=== PATIENT | male | born 2000 | race Caucasian/White ===

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

== ENCOUNTER 2022-11-28 11:56 | Emergency (ER) | payer OTHER, MEDICAID, SELFPAY ==
[2022-11-28 12:12] VITALS: BP 142/74; PULSE 64; RESP 20; TEMP 37.1; O2SAT 100; BMI 18.4
--- NOTE | 2022-11-28 13:12 | ED_ITS ---
HPI - URI/Sore Throat <KATE Tovar - Last Filed: 11/28/22 16:58> General Chief Complaint: Dental/Oral Stated Complaint: has thrush needs more meds Time Seen by Provider: 11/28/22 13:04 Source: patient Mode of arrival: Ambulatory History of Present Illness HPI Narrative: This is a 22-year-old male presents to the emergency department with a sore throat and mouth which he states has not gotten any better since starting nystatin 1 week ago. He states he came from [place], has never had this infection before, denies history of medical problems. Denies history of diabetes, HIV or other. States that his mouth and his throat feel dry all the time. He has history of T&A surgery but states that he feels like his mouth and throat are raw. There is a faint white film on his tongue and posterior pharyn x. He denies fever chills but states that he had viral symptoms preceding this and was tested for COVID which was negative. He states that he had a negative strep test as well. States the nystatin has not made any difference and he has not had any improvement thus far. Related Data Home Medications Medication Instructions Recorded Confirmed acetaminophen 500 mg tablet 1,000 mg PO Q6H PRN Fever Or Pain 08/01/18 11/23/19 (Tylenol Extra Strength) Previous Rx's Medication Instructions Recorded dicloxacillin 500 mg capsule 500 mg PO Q6H Infection #40 caps 11/23/19 fluoxetine 20 mg capsule See Rx Instructions .Route 06/12/20 .COMPLEX #30 caps fluconazole 150 mg tablet 150 mg PO Q3D 2 doses #2 tabs 11/28/22 Allergies Allergy/AdvReac Type Severity Reaction Status Date / Time No Known Drug Allergies Allergy Verified 11/28/22 12:18 Review of Systems <KATE Tovar - Last Filed: 11/28/22 16:58> Review of Systems ROS Unobtainable: All systems reviewed & are unremarkable except as noted in HPI and below Patient History <KATE Tovar - Last Filed: 11/28/22 16:58> Medical History (Updated 11/28/22 @ 13:49 by KATE Tovar) Anxiety and depression Asymmetry of face Delayed immunizations Marijuana smoker No chronic problems No pertinent family history Syncope Surgical History History of foot surgery Status post tonsillectomy and adenoidectomy Social History Smoking Status: Current some day smoker Smoking Status: Current some day smoker tobacco type: vaping alcohol intake frequency: 0-2 drinks per day Substance Use Type: marijuana Exam <KATE Tovar - Last Filed: 11/28/22 16:58> Narrative Exam Narrative: HEENT: Face is symmetrical, patient is afebrile, tongue with my white film, posterior pharynx without tonsils or adenoids, mild erythema, posterior pharynx with mild exudate, airway is widely patent Initial Vital Signs Initial Vital Signs: Vital Signs Temperature 98.8 F 11/28/22 12:12 Pulse Rate 64 11/28/22 12:12 Respiratory Rate 20 11/28/22 12:12 Blood Pressure 142/74 H 11/28/22 12:12 Pulse Oximetry 100 11/28/22 12:12 Oxygen Delivery Method Room Air 11/28/22 12:12 <Cleo Gomez DO - Last Filed: 12/03/22 08:42> Initial Vital Signs Initial Vital Signs: Vital Signs Temperature 98.8 F 11/28/22 12:12 Pulse Rate 64 11/28/22 12:12 Respiratory Rate 20 11/28/22 12:12 Blood Pressure 142/74 H 11/28/22 12:12 Pulse Oximetry 100 11/28/22 12:12 Oxygen Delivery Method Room Air 11/28/22 12:12 Course <KATE Tovar - Last Filed: 11/28/22 16:58> Orders Ordered: Discontinued Medications Ceftriaxone Sodium (Ceftriaxone 1,000 Mg Vial) 500 mg IM NOW ONE Stop: 11/28/22 13:12 Last Admin: 11/28/22 13:45 Dose: 500 mg Documented By: FELIPE Fluconazole (Fluconazole 100 Mg Tablet) 150 mg PO NOW ONE Stop: 11/28/22 13:11 Last Admin: 11/28/22 13:34 Dose: 150 mg Documented By: FELIPE Lidocaine HCl (Lidocaine 1% (Pf) 5 Ml) 2.1 ml INJ NOW ONE Stop: 11/28/22 13:12 Last Admin: 11/28/22 13:49 Dose: Not Given Documented By: FELIPE Vital Signs Vital signs: Vital Signs - 8 hr 11/28/22 12:12 11/28/22 14:07 Temperature 98.8 F 98.8 F Pulse Rate 64 65 Respiratory Rate 20 18 Blood Pressure 142/74 H 118/77 Pulse Oximetry 100 98 Oxygen Delivery Method Room Air Room Air <Cleo Gomez DO - Last Filed: 12/03/22 08:42> Orders Ordered: Discontinued Medications Ceftriaxone Sodium (Ceftriaxone 1,000 Mg Vial) 500 mg IM NOW ONE Stop: 11/28/22 13:12 Last Admin: 11/28/22 13:45 Dose: 500 mg Documented By: FELIPE Fluconazole (Fluconazole 100 Mg Tablet) 150 mg PO NOW ONE Stop: 11/28/22 13:11 Last Admin: 11/28/22 13:34 Dose: 150 mg Documented By: FELIPE Lidocaine HCl (Lidocaine 1% (Pf) 5 Ml) 2.1 ml INJ NOW ONE Stop: 11/28/22 13:12 Last Admin: 11/28/22 13:49 Dose: Not Given Documented By: FELIPE Vital Signs Vital signs: Vital Signs - 8 hr 11/28/22 12:12 11/28/22 14:07 Temperature 98.8 F 98.8 F Pulse Rate 64 65 Respiratory Rate 20 18 Blood Pressure 142/74 H 118/77 Pulse Oximetry 100 98 Oxygen Delivery Method Room Air Room Air MDM - URI/Sore Throat <KATE Tovar - Last Filed: 11/28/22 16:58> Lab Data Labs: Lab Results 11/28/22 Range/Units 13:38 C.trachomatis RNA (TMA) Negative (Negative) N.gonorrhoeae RNA (TMA) Negative (Negative) MDM Narrative Medical decision making narrative: Chief Complaint: Throat and mouth infection Multiple etiologies for patient's complaint considered including, but not limited to: Streptococcal infection, gonorrhea, HIV, chlamydia, viral pharyngitis, thrush, other bacterial pharyngitis I have independently reviewed the patient's vital signs and nursing notes as w ell as prior records if available. Plan: Throat culture swab including gonorrhea and chlamydia, fluconazole. Patient wishes for empiric treatment until culture results. Will treat with ceftriaxone IM and fluconazole times 3. Throat culture is pending, gonorrhea and chlamydia with antigen is testing as well as looking for Luana. Microbiology has 2 plates pending. Will follow this result today and call the patient back if there is an updated result today. Social considerations that may affect disposition: none Questions are addressed and there is agreement with the plan and for follow-up. I consulted with the ED attending physician Dr. Gomez as needed for higher level of care considerations and they were available for discussion and recommendations regarding plan of care and diagnostic testing. Patient is appropriate for outpatient management. <Cleo Gomez, DO - Last Filed: 12/03/22 08:42> Lab Data Labs: Lab Results 11/28/22 Range/Units 13:38 C.trachomatis RNA (TMA) Negative (Negative) N.gonorrhoeae RNA (TMA) Negative (Negative) Discharge Plan Departure Patient Disposition: Home Clinical Impression: Pharyngitis Qualifiers: Pharyngitis/tonsillitis etiology: unspecified etiology Qualified Code(s): J02.9 - Acute pharyngitis, unspecified Instructions: DI for Pharyngitis/Tonsillopharyngitis -- Adult Activity Restrictions/Additional Instructions: *You have been diagnosed with pharyngitis which could be thrush but I do not think it is as you have not had any improvement in you have been using the nystatin. This very well could be a strep infection or other bacterial infection of your throat. We obtained a culture which will determine what type of bacteria or virus it is if it is 1 of the papular ones and we treated you empirically today for both strep throat and fungal infection. I will call you later today if you need an additional prescriptions sent to your pharmacy, otherwise okay to take fluconazole for thrush again tomorrow and then in 2 days after that if you still have this infection. I may call you later today telling you to not take this because you probably do not need it. *What to do: *Please continue to take your regular medications as directed. [ x] New medication prescriptions sent to your pharmacy: [[facility] ] [ ] New medication written as a paper prescription [ ] No prescription. Please schedule follow up with your primary care provider in 2-3 days, at least for an update. Let them know you were seen in the Emergency Department for the above problem. We will electronically transmit a record of today's note if your PCP or specialist is in our system. *If you do not have a primary care provider please contact [phone] to establish care with one of the [facility] primary care providers. *Return to the Emergency Department for worsening symptoms, inability to keep liquids down, fever greater than 101F, chills, or other concerning symptom. Prescriptions: New fluconazole 150 mg tablet 150 mg PO Q3D Qty: 2 0RF Rx Instructions: may repeat second dose 72 hrs after first dose if symptoms persist No Action dicloxacillin 500 mg capsule 500 mg PO Q6H Qty: 40 0RF Rx Instructions: Take 1 capsule 1 hour before or 2 hours after meals each 6 hours for 10 days fluoxetine 20 mg capsule See Rx Instructions .ROUTE .COMPLEX Qty: 30 0RF Dose Instruction: TAKE ONE CAPSULE BY MOUTH ONE TIME DAILY. please schedule a follow up for additional refills Rx Instructions: TAKE ONE CAPSULE BY MOUTH ONE TIME DAILY. please schedule a follow up for additional refills acetaminophen [Tylenol Extra Strength] 500 mg Tablet 1,000 mg PO Q6H PRN (Reason: Fever Or Pain) Referrals: Deanna Hernandez ARNP [Primary Care Provider] - Stand Alone Forms: Patient Portal/API <Cleo Gomez DO - Last Filed: 12/03/22 08:42> Cosign ED Attending Andressaature Attestation: I was immediately available in the department for consultation. Documentation has been reviewed. Case was discussed, cultures negative for N.gonorrhea or chlamydia. Mixed asaf on culture.
[2022-11-28] MEDS: FLUCONAZOLE 100 MG TABLET 150 MG PO (13:34)
[2022-11-28] MEDS: cefTRIAXone 1,000 MG VIAL 500 MG IM (13:45)
[2022-11-28 14:07] VITALS: BP 118/77; PULSE 65; RESP 18; TEMP 37.1; O2SAT 98
[2022-11-30 04:12] LABS: C.trachomatis RNA Negative (Negative); N.gonorrhoeae RNA Negative (Negative)
== END 2022-11-28 14:07 | disposition home or self-care (01) ==
PROVIDERS: Emergency Provider Nurse Practitioner Critical Care Medicine; Family Provider Pediatrics; PCP Registered Nurse
DX: J02.9 Acute pharyngitis, unspecified (principal)
CPT/HCPCS: 87070; 87081; 87491; 87591; 96372; 99283; J0696

== ENCOUNTER 2023-06-19 16:23 | Emergency (ER) | payer OTHER, MEDICAID, SELFPAY ==
[2023-06-19 16:37] VITALS: BP 129/71; PULSE 76; RESP 16; TEMP 37.4; O2SAT 96; BMI 19.1
--- NOTE | 2023-06-19 16:54 | DI.RAD.S_ITS ---
PROCEDURE: XR FINGER LT MIN 2V INDICATIONS: screw into thumb TECHNIQUE: AP hand, 2 views of the 3 finger(s) acquired. COMPARISON: None. FINDINGS: Bones: No fractures or dislocations. No suspicious bony lesions. Soft tissues: No suspicious soft tissue calcifications. IMPRESSION: No acute bony abnormality. Approved by: Garrett Nogueira M.D. on 06/19/2023 at 17:28
--- NOTE | 2023-06-19 17:28 | ED_ITS ---
<Statement entered by Mj Corbett MD - 06/19/23 18:48> I was immediately available in the department for consultation. Documentation has been reviewed. I agree with assessment and plan. HPI - Wound/Laceration General Chief Complaint: Wound/Laceration Stated Complaint: screw in lt thumb, now removed Time Seen by Provider: 06/19/23 16:56 Source: patient Mode of arrival: Ambulatory History of Present Illness HPI narrative: 22-year-old male with no reported past medical history presents to the ED status post a left finger injury sustained at work. Patient was trying to drill a nail into a board when he accidentally drilled the nail into his left thumb. He was able to unscrew the nail successfully. Patient's last tetanus was in 2019. Patient endorses some mild numbness to the end of his thumb, however denies tingling, weakness. There is full range of motion. Bleeding is controlled with pressure. There is a small puncture wound. Related Data Home Medications Medication Instructions Recorded Confirmed acetaminophen 500 mg tablet 1,000 mg PO Q6H PRN Fever Or Pain 08/01/18 12/19/22 (Tylenol Extra Strength) Previous Rx's Medication Instructions Recorded dicloxacillin 500 mg capsule 500 mg PO Q6H Infection #40 caps 11/23/19 fluoxetine 20 mg capsule See Rx Instructions .Route 06/12/20 .COMPLEX #30 caps fluconazole 150 mg tablet 150 mg PO Q3D 2 doses #2 tabs 11/28/22 lidocaine HCl 2 % mucosal solution 1 applic mucous membrane BID PRN 12/19/22 pain #100 mL Allergies Allergy/AdvReac Type Severity Reaction Status Date / Time No Known Drug Allergies Allergy Verified 12/19/22 15:20 Review of Systems Constitutional Constitutional: Denies chills, Denies fatigue, Denies fever(s), Denies frequent falls, Denies lethargy and Denies weakness Eyes Eyes: Denies change in vision, Denies eye discharge, Denies irritation and Denies loss of vision ENT Ears, Nose, Mouth, and Throat: Denies change in voice, Denies dizziness, Denies neck pain, Denies sore throat and Denies throat swelling Cardiovascular Cardiovascular: Denies chest pain, Denies irregular heart rhythm, Denies lightheadedness, Denies palpitations, Denies dyspnea, Denies dyspnea on exertion and Denies orthopnea Respiratory Respiratory: Denies cough, Denies dyspnea, Denies dyspnea on exertion and Denies wheezing Gastrointestinal Gastrointestinal: Denies abdominal pain, Denies change in bowel habits, Denies diarrhea, Denies nausea and Denies vomiting Musculoskeletal Musculoskeletal: Denies neck pain and Denies numbness Integumentary/Breasts Skin/Breast: Denies pruritus, Denies erythema, Denies rash and Reports wounds Neurologic Neurologic: Denies behavioral changes, Denies confusion, Denies dizziness, Denies frequent falls, Denies loss of vision, Denies numbness and Denies weakness Psychiatric Psychiatric: Denies anxiety, Denies behavioral changes, Denies confusion, Denies depression, Denies homicidal ideation and Denies suicidal ideation Endocrine Endocrine: Denies fatigue, Denies flushing and Denies palpitations Hematologic/Lymphatic Hematologic/Lymphatic: Denies easy bruising Allergic/Immunologic Allergic/Immunologic: Denies urticaria, Denies throat swelling and Denies wheezing Patient History Medical History (Updated 06/19/23 @ 17:41 by Julio César Bain PA-C) Marijuana smoker Anxiety and depression Delayed immunizations Asymmetry of face Syncope No pertinent family history No chronic problems Surgical History Status post tonsillectomy and adenoidectomy History of foot surgery Social History Smoking Status: Current some day smoker Smoking Status: Current some day smoker tobacco type: vaping alcohol intake frequency: 0-2 drinks per day Substance Use Type: marijuana Exam Narrative Exam Narrative: Const General:?cooperative, healthy appearing and comfortable [facility] Head:?normal to inspection Ears:?hearing grossly normal bilaterally Nose:?external nose normal Face and sinus:?normal facial exam and sinuses nontender Mouth:?oral mucosae normal Throat:?posterior oropharynx normal Eyes General:?appearance normal, both eyes and all related structures Neck Neck:?normal visual inspection and no lymphadenopathy noted Resp Effort & Inspection:?normal respiratory effort Auscultation:?clear to auscultation bilaterally Cardio Rate:?regular rate Rhythm:?regular rhythm Integumentary There is a small puncture wound to the left thumb pad. There is no bleeding on exam. There is full range of motion. Strength and sensation is intact. Patient is neurovascularly intact. Neuro General:?patient alert, patient awake and patient oriented x3 Initial Vital Signs Initial Vital Signs: Vital Signs Temperature 99.3 F 06/19/23 16:37 Pulse Rate 76 06/19/23 16:37 Respiratory Rate 16 06/19/23 16:37 Blood Pressure 129/71 06/19/23 16:37 Pulse Oximetry 96 06/19/23 16:37 Oxygen Delivery Method Room Air 06/19/23 16:37 Course Orders Ordered: ED Orders 06/19/23 16:54 XR finger LT min 2V Stat Vital Signs Vital signs: Vital Signs - 8 hr 06/19/23 16:37 06/19/23 18:30 Temperature 99.3 F 98.5 F Pulse Rate 76 65 Respiratory Rate 16 Blood Pressure 129/71 126/71 Pulse Oximetry 96 99 Oxygen Delivery Method Room Air Room Air MDM - Wound/Laceration MDM Narrative Medical decision making narrative: 22-year-old male with no reported past medical history presents to the ED status post a left finger injury sustained at work. Concern for fracture/dislocation versus wound versus other. Will obtain x-ray. No bleeding on exam, no repair indicated. X-ray with no acute findings. Signs of infection and wound care discussed with patient. ED return precautions discussed with patient. Patient verbalized understanding. Medical records reviewed: Yes Discharge Plan Departure Patient Disposition: Home Clinical Impression: Injury of thumb, left Qualifiers: Encounter type: initial encounter Qualified Code(s): S69.92XA - Unspecified injury of left wrist, hand and finger(s), initial encounter Instructions: DI for Puncture Wound Activity Restrictions/Additional Instructions: Were evaluated in the ED today for a left thumb injury. Your tetanus is up-to-date, your last tetanus was in 2019. Your x-ray does not show any fractures or dislocations. Please keep the wound clean and return to the ED if you note any signs of infection. Signs of infection include worsening redness, pain, swelling, warmth, discharge. Please follow-up with your PCP as soon as possible. Prescriptions: No Action dicloxacillin 500 mg capsule 500 mg PO Q6H Qty: 40 0RF Rx Instructions: Take 1 capsule 1 hour before or 2 hours after meals each 6 hours for 10 days lidocaine HCl 2 % solution 1 applic mucous membrane BID PRN (Reason: pain) Qty: 100 0RF Rx Instructions: swish and spit fluoxetine 20 mg capsule See Rx Instructions .ROUTE .COMPLEX Qty: 30 0RF Dose Instruction: TAKE ONE CAPSULE BY MOUTH ONE TIME DAILY. please schedule a follow up for additional refills Rx Instructions: TAKE ONE CAPSULE BY MOUTH ONE TIME DAILY. please schedule a follow up for additional refills acetaminophen [Tylenol Extra Strength] 500 mg Tablet 1,000 mg PO Q6H PRN (Reason: Fever Or Pain) fluconazole 150 mg tablet 150 mg PO Q3D Qty: 2 0RF Rx Instructions: may repeat second dose 72 hrs after first dose if symptoms persist Referrals: Deanna Hernandez ARNP [Primary Care Provider] - Stand Alone Forms: Patient Portal/API
[2023-06-19 18:30] VITALS: BP 126/71; PULSE 65; TEMP 36.9; O2SAT 99
== END 2023-06-19 18:40 | disposition home or self-care (01) ==
PROVIDERS: Emergency Provider Student in an Organized Health Care Education/Training Program; Family Provider Pediatrics; PCP Registered Nurse
DX: S61.032A Puncture wound without foreign body of left thumb without damage to nail, initial encounter (principal); W29.8XXA Contact with other powered hand tools and household machinery, initial encounter
CPT/HCPCS: 73140; 99281; 99283

== ENCOUNTER 2023-10-19 21:40 | Emergency (ER) | payer OTHER, MEDICAID, SELFPAY ==
[2023-10-19 21:51] VITALS: BP 129/72; PULSE 85; RESP 16; TEMP 37.2; O2SAT 98; BMI 20.3
--- NOTE | 2023-10-19 21:57 | DI.RAD.S_ITS ---
PROCEDURE: XR KNEE RT 3V INDICATIONS: Twisted leg, heard pop in knee, pain TECHNIQUE: 3 views of the knee were acquired. COMPARISON: None. FINDINGS: Bones: No acute displaced fracture. Alignment is maintained. Soft tissues: Possible joint effusion is present. IMPRESSION: No acute osseous abnormality. Given reported history, consider MRI to further evaluate for internal derangement. Dictated by: Charles Quiros M.D. on 10/19/2023 at 23:00 Approved by: Charles Quiros M.D. on 10/19/2023 at 23:01
--- NOTE | 2023-10-19 21:58 | DI.RAD.S_ITS ---
PROCEDURE: XR ANKLE RT MIN 3V INDICATIONS: twisted ankle, decreased ROM, weightbearing TECHNIQUE: 3 views of the ankle were acquired. COMPARISON: None. FINDINGS: Bones: Ankle mortise appears maintained. No acute displaced fracture. Soft tissues: No suspicious calcifications. IMPRESSION: No acute osseous abnormality. If there is high concern for further derangement, consider MRI evaluation. Dictated by: Charles Quiros M.D. on 10/19/2023 at 23:01 Approved by: Charles Quiros M.D. on 10/19/2023 at 23:02
[2023-10-20 01:02] VITALS: BP 137/69; PULSE 88; RESP 18; TEMP 36.5; O2SAT 97
--- NOTE | 2023-10-20 05:31 | ED.LOWEXIN ---
HPI - Extremity Injury (Lower) General Chief Complaint: Extremity Injury, Lower Stated Complaint: knee and heel pain Source: patient Mode of arrival: Family Vehicle History of Present Illness HPI Narrative: Patient left without being seen by provider Related Data Home Medications Medication Instructions Recorded Confirmed acetaminophen 500 mg tablet 1,000 mg PO Q6H PRN Fever Or Pain 08/01/18 12/19/22 (Tylenol Extra Strength) Previous Rx's Medication Instructions Recorded dicloxacillin 500 mg capsule 500 mg PO Q6H Infection #40 caps 11/23/19 fluoxetine 20 mg capsule See Rx Instructions .Route 06/12/20 .COMPLEX #30 caps fluconazole 150 mg tablet 150 mg PO Q3D 2 doses #2 tabs 11/28/22 lidocaine HCl 2 % mucosal solution 1 applic mucous membrane BID PRN 12/19/22 pain #100 mL Allergies Allergy/AdvReac Type Severity Reaction Status Date / Time No Known Drug Allergies Allergy Verified 12/19/22 15:20 Patient History Medical History (Updated 10/20/23 @ 04:08 by Lake Snow RN) Marijuana smoker Anxiety and depression Delayed immunizations Asymmetry of face Syncope No pertinent family history No chronic problems Surgical History Status post tonsillectomy and adenoidectomy History of foot surgery Social History Smoking Status: Current some day smoker Smoking Status: Current some day smoker tobacco type: vaping alcohol intake frequency: 0-2 drinks per day Substance Use Type: marijuana Exam Initial Vital Signs Initial Vital Signs: Vital Signs Temperature 98.9 F 10/19/23 21:51 Pulse Rate 85 10/19/23 21:51 Respiratory Rate 16 10/19/23 21:51 Blood Pressure 129/72 10/19/23 21:51 Pulse Oximetry 98 10/19/23 21:51 Oxygen Delivery Method Room Air 10/19/23 21:51 Course Orders Ordered: ED Orders 10/19/23 21:57 XR knee RT 3V Stat 10/19/23 21:58 XR ankle RT min 3V Stat Vital Signs Vital signs: Vital Signs - 8 hr 10/19/23 21:51 10/20/23 01:02 Temperature 98.9 F 97.7 F Pulse Rate 85 88 Respiratory Rate 16 18 Blood Pressure 129/72 137/69 Pulse Oximetry 98 97 Oxygen Delivery Method Room Air Room Air Discharge Plan Departure Patient Disposition: Left Without Being Seen Clinical Impression: Patient left without being seen Prescriptions: No Action dicloxacillin 500 mg capsule 500 mg PO Q6H Qty: 40 0RF Rx Instructions: Take 1 capsule 1 hour before or 2 hours after meals each 6 hours for 10 days lidocaine HCl 2 % solution 1 applic mucous membrane BID PRN (Reason: pain) Qty: 100 0RF Rx Instructions: swish and spit fluoxetine 20 mg capsule See Rx Instructions .ROUTE .COMPLEX Qty: 30 0RF Dose Instruction: TAKE ONE CAPSULE BY MOUTH ONE TIME DAILY. please schedule a follow up for additional refills Rx Instructions: TAKE ONE CAPSULE BY MOUTH ONE TIME DAILY. please schedule a follow up for additional refills acetaminophen [Tylenol Extra Strength] 500 mg Tablet 1,000 mg PO Q6H PRN (Reason: Fever Or Pain) fluconazole 150 mg tablet 150 mg PO Q3D Qty: 2 0RF Rx Instructions: may repeat second dose 72 hrs after first dose if symptoms persist
== END 2023-10-20 03:02 | disposition left against medical advice (07) ==
PROVIDERS: Emergency Provider Emergency Medicine; Family Provider Pediatrics; PCP Registered Nurse
DX: M25.561 Pain in right knee (principal)
CPT/HCPCS: 73562; 73610; 99281

== ENCOUNTER 2023-10-29 01:08 | Emergency (ER) | payer OTHER, MEDICAID, SELFPAY ==
[2023-10-29 01:11] VITALS: BP 123/82; PULSE 78; RESP 20; TEMP 36.1; O2SAT 100; BMI 20.3
[2023-10-29 01:12] VITALS: PULSE 75; RESP 18; O2SAT 96
--- NOTE | 2023-10-29 01:14 | ED_ITS ---
HPI - General Adult General Chief complaint: Recheck/Abnormal Lab/Rx Stated complaint: ETOH/ Hyperglycemia Time Seen by Provider: 10/29/23 01:14 Source: patient, RN notes reviewed and old records reviewed Mode of arrival: EMS History of Present Illness HPI narrative: 23-year-old male presents for ETOH. Patient has been drinking this evening. Found sleeping, patient states he had too much to drink. EMS contacted family who came and was prepared to take patient home but they checked glucose and was in the 400 range on 2 separate glucometer. Patient does not have any history of diabetes. He does note he sometimes has some numbness and tingling down his legs into his feet lately. He has no other complaints currently. Does not take any medications currently. Denies major surgeries. Vapes tobacco, occasional intermittent alcohol use, uses marijuana. States no other recreational drugs. No thoughts of harming himself or others. Related Data Home Medications Medication Instructions Recorded Confirmed acetaminophen 500 mg tablet 1,000 mg PO Q6H PRN Fever Or Pain 08/01/18 12/19/22 (Tylenol Extra Strength) Previous Rx's Medication Instructions Recorded dicloxacillin 500 mg capsule 500 mg PO Q6H Infection #40 caps 11/23/19 fluoxetine 20 mg capsule See Rx Instructions .Route 06/12/20 .COMPLEX #30 caps fluconazole 150 mg tablet 150 mg PO Q3D 2 doses #2 tabs 11/28/22 lidocaine HCl 2 % mucosal solution 1 applic mucous membrane BID PRN 12/19/22 pain #100 mL Allergies Allergy/AdvReac Type Severity Reaction Status Date / Time No Known Drug Allergies Allergy Verified 12/19/22 15:20 Review of Systems Review of Systems ROS Unobtainable: All systems reviewed & are unremarkable except as noted in HPI and below Patient History Medical History (Updated 10/29/23 @ 02:03 by Cleo Gomez DO) Marijuana smoker Anxiety and depression Delayed immunizations Asymmetry of face Syncope No pertinent family history No chronic problems Surgical History Status post tonsillectomy and adenoidectomy History of foot surgery Social History Smoking Status: Current some day smoker Smoking Status: Current some day smoker tobacco type: vaping alcohol intake frequency: 0-2 drinks per day Substance Use Type: marijuana Exam Narrative Exam Narrative: GENERAL: Alert and oriented x three, well-appearing male in mild distress HEENT: Head normocephalic, atraumatic, EOMI, pupils reactive, face symmetric, moist mucous membranes NECK: Supple, full range of motion CARDIOVASCULAR: Regular rate and rhythm without murmurs, rubs or gallops. RESPIRATORY: Breath sounds equal bilaterally, no wheezes rales or rhonchi. ABDOMEN: Soft, nontender. Normoactive bowel sounds all 4 quadrants. No guarding or rebound, rigidity, no mass : No CVA tenderness EXTREMITIES: Normal range of motion, no clubbing or edema. Neurovascularly intact NEUROLOGICAL: Cranial nerves II through XII grossly intact. Moving all extremities SKIN: Warm, dry, no petechiae, no rashes or lesions. Initial Vital Signs Initial Vital Signs: Vital Signs Temperature 96.9 F L 10/29/23 01:11 Pulse Rate 78 10/29/23 01:11 Respiratory Rate 20 10/29/23 01:11 Blood Pressure 123/82 10/29/23 01:11 Pulse Oximetry 100 10/29/23 01:11 Oxygen Delivery Method Room Air 10/29/23 01:11 Course Orders Ordered: ED Orders 10/29/23 01:14 BMP [Basic Metabolic Panel] Stat CBC Auto Diff [Complete Blood Count AUTO DIFF] Stat Vital Signs Vital signs: Vital Signs - 8 hr 10/29/23 01:11 10/29/23 01:12 10/29/23 01:30 Temperature 96.9 F L Pulse Rate 78 75 69 Respiratory Rate 20 18 Blood Pressure 123/82 Pulse Oximetry 100 96 97 Oxygen Delivery Method Room Air Room Air Room Air 10/29/23 02:00 10/29/23 02:09 10/29/23 02:09 Temperature Pulse Rate 62 65 Respiratory Rate 18 18 Blood Pressure 111/73 Pulse Oximetry 97 99 Oxygen Delivery Method Room Air Room Air Medical Decision Making Lab Data 10/29/23 01:14 10/29/23 01:14 Labs: Lab Results 10/29/23 Range/Units 01:14 WBC 6.8 (4.5-11.0) X10^3/uL RBC 4.98 (4.5-5.9) X10^6/uL Hgb 16.0 (13.5-17.5) g/dL Hct 46.2 (41-53) % MCV 92.8 (80-100) fL MCH 32.2 (26-34) PG MCHC 34.7 (30-36) % RDW 13.4 (11.6-14.8) % Plt Count 321 (150-400) X10^3/uL Neut % (Auto) 73.7 (50-75) % Lymph % (Auto) 16.6 L (25-40) % [place] % (Auto) 6.9 (3-14) % Eos % (Auto) 0.8 L (2-4) % Baso % (Auto) 2.0 (0-2) % Neut # (Auto) 5000 (6500-8544) /uL Lymph # (Auto) 1100 (3716-8654) /uL [place] # (Auto) 500 (0-900) /uL Eos # (Auto) 100 (0-450) /uL Baso # (Auto) 100 (0-100) /uL Sodium 143 (137-145) mmol/L Potassium 3.8 (3.4-5.1) mmol/L Chloride 108 H (98-107) mmol/L Carbon Dioxide 24 (22-32) mmol/L BUN 10 (9-20) mg/dL Creatinine 0.81 (0.66-1.25) mg/dL Estimated GFR > 60 (>60) mL/min BUN/Creatinine Ratio 12.3 (6-22) Glucose 108 H (70-100) mg/dL Calcium 9.1 (8.4-10.2) mg/dL Point of Care Testing Glucose POC 107 Point of care testing: Point of Care Testing Glucose POC 107 MDM Narrative Medical decision making narrative: Glucometer here was 107 but EMS had 2 separate glucometer that were 430 range. They note they cleansed hands well as patient has been drinking twisted teas this evening. They state they have been calibrated and has been having excessive hives overall. We will obtain serum sample to evaluate for hyperglycemia. Patient has had alcohol tonight but no trauma, no other injuries. No reported medical issues otherwise. Labs show no acute change, no hyperglycemia. Patient is intoxicated but family presented with him. He was only transported due to his hyperglycemia EMS glucometer. Serum glucose is appropriate today. Discharge Plan Departure Patient Disposition: Home Clinical Impression: Alcohol intoxication Activity Restrictions/Additional Instructions: Your labs today overall are appropriate, your glucose is 108. Please return if you have any new or concerning changes. Prescriptions: No Action dicloxacillin 500 mg capsule 500 mg PO Q6H Qty: 40 0RF Rx Instructions: Take 1 capsule 1 hour before or 2 hours after meals each 6 hours for 10 days lidocaine HCl 2 % solution 1 applic mucous membrane BID PRN (Reason: pain) Qty: 100 0RF Rx Instructions: swish and spit fluoxetine 20 mg capsule See Rx Instructions .ROUTE .COMPLEX Qty: 30 0RF Dose Instruction: TAKE ONE CAPSULE BY MOUTH ONE TIME DAILY. please schedule a follow up for additional refills Rx Instructions: TAKE ONE CAPSULE BY MOUTH ONE TIME DAILY. please schedule a follow up for additional refills acetaminophen [Tylenol Extra Strength] 500 mg Tablet 1,000 mg PO Q6H PRN (Reason: Fever Or Pain) fluconazole 150 mg tablet 150 mg PO Q3D Qty: 2 0RF Rx Instructions: may repeat second dose 72 hrs after first dose if symptoms persist Referrals: Deanna Hernandez ARNP [Primary Care Provider] - Stand Alone Forms: Patient Portal/API
[2023-10-29 01:30] VITALS: PULSE 69; O2SAT 97
[2023-10-29 01:32] LABS: Add Manual Diff / Slide Review NO; Basophils Absolute Auto 100 /uL (0-100); Eosinophils Absolute Auto 100 /uL (0-450); Eosinophils Percent Auto 0.8 % (2-4); Hematocrit 46.2 % (41-53); Lymphocytes Absolute Auto 1100 /uL (1100-4500); Lymphocytes Percent Auto 16.6 % (25-40); Mean Corpuscular HGB Conc 34.7 % (30-36); Mean Corpuscular Hemoglobin 32.2 PG (26-34); Mean Corpuscular Volume 92.8 fL (80-100); Monocytes Absolute Auto 500 /uL (0-900); Monocytes Percent Auto 6.9 % (3-14); Neutrophils Absolute Auto 5000 /uL (1500-7000); Neutrophils Percent Auto 73.7 % (50-75); Platelet Count 321 X10^3/uL (150-400); Red Blood Cell Count 4.98 X10^6/uL (4.5-5.9); Red Cell Distribution Width 13.4 % (11.6-14.8); White Blood Cell Count 6.8 X10^3/uL (4.5-11.0)
[2023-10-29 01:36] LABS: BUN Creatinine Ratio 12.3 (6-22); Blood Urea Nitrogen 10 mg/dL (9-20); Calcium 9.1 mg/dL (8.4-10.2); Carbon Dioxide 24 mmol/L (22-32); Chloride 108 mmol/L (98-107); Estimated Glomerular Filt Rate > 60 mL/min (>60); Glucose 108 mg/dL (70-100); HEMOLYSIS < 15 (0-50); Potassium 3.8 mmol/L (3.4-5.1); Sodium 143 mmol/L (137-145)
[2023-10-29 02:00] VITALS: PULSE 62; RESP 18; O2SAT 97
[2023-10-29 02:09] VITALS: BP 111/73; PULSE 65; RESP 18; O2SAT 99
== END 2023-10-29 02:16 | disposition home or self-care (01) ==
PROVIDERS: Emergency Provider Emergency Medicine; Family Provider Pediatrics; PCP Registered Nurse
DX: F10.129 Alcohol abuse with intoxication, unspecified (principal); R73.9 Hyperglycemia, unspecified
CPT/HCPCS: 36415; 80048; 82962; 85025; 99282; 99283; 99284